=== PATIENT | male | born 1935 | race Caucasian/White ===

== ENCOUNTER → 2016-09-22 | Outpatient (CLI) | payer OTHER, MEDICARE | LOC: BHFA 10:30 | PROVIDERS: ATTEND Internal Medicine Cardiovascular Disease | DX: I71.9 Aortic aneurysm of unspecified site, without rupture (principal); E78.5 Hyperlipidemia, unspecified; I10 Essential (primary) hypertension; I44.7 Left bundle-branch block, unspecified ==

== ENCOUNTER → 2016-10-05 | Outpatient (CLI) | payer OTHER, MEDICARE | LOC: BHFA 10:30 | PROVIDERS: ATTEND Internal Medicine Cardiovascular Disease | DX: I34.0 Nonrheumatic mitral (valve) insufficiency (principal); I44.7 Left bundle-branch block, unspecified ==

== ENCOUNTER → 2016-10-12 | Outpatient (CLI) | payer OTHER, MEDICARE | LOC: BHFA 09:15 | PROVIDERS: ATTEND Internal Medicine Interventional Cardiology | DX: R42 Dizziness and giddiness (principal) ==

== ENCOUNTER → 2016-10-19 | Outpatient (CLI) | payer OTHER, MEDICARE ==
[~2016-10-19] MED LIST: IOPAMIDOL (ISOVUE 370) 100 ML BTL IV ONE
[2016-10-19 14:09] LABS: GLOMERULAR FILTRATION RATE > 60
== END ==
LOC: FIMAGING 13:28
PROVIDERS: ATTEND Physician Assistant Medical
DX: R42 Dizziness and giddiness (principal); I65.21 Occlusion and stenosis of right carotid artery
CPT/HCPCS: 70498; Q9967

== ENCOUNTER → 2016-10-28 | Outpatient (CLI) | payer OTHER, MEDICARE | LOC: BHFA 13:00 | PROVIDERS: ATTEND Internal Medicine Cardiovascular Disease | DX: I44.7 Left bundle-branch block, unspecified (principal); I65.29 Occlusion and stenosis of unspecified carotid artery | CPT/HCPCS: 78452; 93017; A9500 ==

== ENCOUNTER 2016-11-05 05:47 | Inpatient (IN) | payer OTHER, MEDICARE ==
[2016-11-05] MEDS ORDERED: CLINDAMYCIN 600 MG/DEXTROSE 50 ML IV ONE (06:00)
[2016-11-05] MEDS ORDERED: BUPIVACAINE 0.5% 30 ML SDV ONE (06:31)
[2016-11-05] MEDS ORDERED: THROMBIN (BOVINE) 20,000 UNIT SPRAY TP ONE (06:31)
[2016-11-05] MEDS ORDERED: LIDOCAINE 1% 2 ML INJ ONE (06:35)
[2016-11-05] MEDS ORDERED: LR 1,000 ML IV ONE (06:57)
[2016-11-05] MEDS ORDERED: LIDOCAINE 1% 5 ML SDV ID PRN (06:57)
[2016-11-05] MEDS ORDERED: MIDAZOLAM 2 MG/2 ML VIAL ONE (07:00)
[2016-11-05] MEDS ORDERED: fentaNYL 100 MCG/2 ML INJ ONE (07:20)
[2016-11-05] MEDS ORDERED: PROPOFOL/EMULSION 500 MG/50 ML BOTTLE IV ONE (07:20)
[2016-11-05] MEDS ORDERED: REMIFENTANIL HCL 1 MG VIAL ONE (07:20)
[2016-11-05] MEDS ORDERED: HEPARIN 10,000 UNIT/10 ML MDV ONE (07:21)
[2016-11-05] MEDS ORDERED: LIDOCAINE 2% 100 MG/5 ML SYR ONE (07:21)
[2016-11-05] MEDS ORDERED: ONDANSETRON 4 MG/2 ML VIAL ONE (07:21)
[2016-11-05] MEDS ORDERED: PHENYLEPHRINE HCL 100 MCG/ML SYR ONE (07:21)
[2016-11-05] MEDS ORDERED: DEXAMETHASONE 4 MG/ML VIAL ONE (07:21)
[2016-11-05] MEDS ORDERED: HYDROmorphONE/DILAUDID 1 MG/ML SYR IVP PRN (07:23)
[2016-11-05] MEDS ORDERED: ACETAMINOPHEN 325 MG TAB PO PRN (07:23)
[2016-11-05] MEDS ORDERED: HYDROCODONE/APAP 5/325 TAB PO PRN (07:23)
[2016-11-05] MEDS ORDERED: LIDOCAINE HCL 160 MG/4 ML LTA KIT TP ONE (07:24)
[2016-11-05] MEDS ORDERED: epHEDrine SULFATE 10 MG/ML SYR ONE ×2 (07:26)
[2016-11-05] MEDS ORDERED: ENALAPRILAT DIHYDRATE 1.25 MG/ML VIAL IVP PRN (07:27)
[2016-11-05] MEDS ORDERED: ASPIRIN 325 MG TAB PO PRN (07:27)
[2016-11-05] MEDS ORDERED: D5W 1/2 NS 1,000 ML IV SCH (07:30)
--- NOTE | 2016-11-05 07:30 | POSTOPPROG ---
Post Op Note Date of Operation: 11/05/16 Surgeon: Shaheen Torres Rand Cementer: Ty Watt Anesthesiologist: Dr Puente Anesthesia: GET(General Endotracheal) Pre-op Diagnosis: left critical carotid stenosis Post-op Diagnosis: same Indication: stenosis, risk of CVA Procedure: Left CEA Findings: plaque Inf/Abcess present in the surg proc area at time of surgery?: No Depth: Deep Incisional (Fascial) EBL: 50-100 Specimen(s): plaque, cervical node
[2016-11-05] MEDS ORDERED: PROTAMINE SULFATE 50 MG/5 ML VIAL IVP ONE (08:49)
--- NOTE | 2016-11-05 10:07 | GOP ---
[f rep st] OPERATIVE REPORT DATE OF OPERATION: 11/05/2016 SURGEON: Shaheen Torres MD PHYSICIAN SURGEON: Ty Watt PA-C. ANESTHESIOLOGIST: Cruz Puente MD. PREOPERATIVE DIAGNOSIS: 1. Possible transient ischemic attacks. 2. Critical left carotid stenosis. 3. enlarged cervical lymph node POSTOPERATIVE DIAGNOSIS: 1. Possible transient ischemic attacks. 2. Critical left carotid stenosis. 3. benign lymph node PROCEDURE PERFORMED: Left carotid endarterectomy with EEG monitoring./ lymph node biopsy, deep cervical FINDINGS: Patient was found to have a very tight and thick plaque at the origin of the internal carotid artery with a soft necrotic ulcerated plaque. He had no EEG changes during the procedure and no difficulties. DESCRIPTION OF PROCEDURE: Patient taken to the operating room, received satisfactory general endotracheal anesthesia by Dr. Puenet. He was heparinized prior to induction, had continuous EEG monitoring and art line monitoring, prepped and draped in usual sterile fashion. A left neck incision was made along the anterior border of the sternocleidomastoid muscle and carried down through the platysma and subcutaneous tissue, then through the superficial fascia. The facial vein was multiply ligated and divided exposing the carotid arterial tree which was dissected free.A 2 cm cervical lymph node was dissected free and sent to pathology Common carotid, external carotid, internal carotid were all dissected free and controlled with vessel loops. Those were inferior thyroid arteries. Dissection extended well up underneath the mandible to expose the upper portion of the internal carotid until we got to the soft point. This required some mobilization and moving the hypoglossal nerve. After adequate exposure was obtained, additional heparin was given, and after adequate circulation time, the vessels were cross clamped. Arteriotomy was made in the common carotid artery. Incision extended up through the plaque into the internal carotid artery. He had excellent backflow from the internal carotid artery and no EEG changes. Expeditious endarterectomy was then done removing the plaque from the carotid origin. All debris was removed. The vessels were irrigated. All vessels were flushed prior to closure of the arteriotomy. Arteriotomy was closed with running 6-0 Prolene suture, appeared to be quite hemostatic. Heparin was reversed with protamine. The wound was sprayed with some topical thrombin, closed in layers using 3-0 Vicryl for the cervical fascia, 3-0 Vicryl for the platysma and subcutaneous tissue, and a 4-0 Monocryl subcuticular stitch for the skin. The superficial layers were infiltrated with 0.5% Marcaine. Tolerated the procedure quite well. He was taken to the recovery room in good condition moving all extremities. /[id number]/MODL MTDD
[2016-11-05] MEDS ORDERED: ALBUMIN 5% 500 ML IV ONE (10:30)
[2016-11-05] MEDS: CLINDAMYCIN 600 MG/DEXTROSE 50 ML IV SCH (17:30)
[2016-11-05] MEDS ORDERED: LISINOPRIL 40 MG TAB PO SCH (21:00)
[2016-11-05] MEDS ORDERED: ATORVASTATIN CALCIUM 40 MG TAB PO SCH (21:00)
[2016-11-05 22:45] VITALS: TEMP 97.7
[2016-11-05 22:50] VITALS: RESP 14
[2016-11-06] MEDS: CLINDAMYCIN 600 MG/DEXTROSE 50 ML IV SCH (01:10)
[2016-11-06 05:09] LABS: HEMOGLOBIN 12.3 g/dL (13.7-17.5)
[2016-11-06 05:47] LABS: ANION GAP 5 mEq/L (8-16); CARBON DIOXIDE 19 mEq/l (22-31); CHLORIDE 117 mEq/L (97-110); CREATININE 0.6 mg/dL (0.7-1.3); GLOMERULAR FILTRATION RATE > 60; GLUCOSE 126 mg/dL (70-100); POTASSIUM 3.3 mEq/L (3.5-5.2); SODIUM 141 mEq/L (134-144)
[2016-11-06] MEDS ORDERED: CLINDAMYCIN 600 MG/DEXTROSE 50 ML IV SCH (06:00)
--- NOTE | 2016-11-06 10:46 | SOAPPROG ---
SOAP Progress Note Assessment/Plan: Assessment: 81yo male s/p left CEA Doing well, walked 10 laps this AM, minimal pain PE alert bandage dry normal biceps/triceps strength testing to resistance Plan: d/c home 11/06/16 10:44 Objective: Vital Signs Temp Pulse Resp BP Pulse Ox 36.5 C 49 L 14 91/51 L 93 11/06/16 04:00 11/06/16 06:00 11/06/16 06:00 11/06/16 06:00 11/06/16 06:00 Laboratory Results 11/06/16 04:40 11/06/16 04:40 11/05/16 11/06/16 11/07/16 05:59 05:59 05:59 Intake Total 5847 Output Total 8863 Balance 2097 ICD10 Worksheet Patient Problems: Problems Problem Status Onset Carotid stenosis Acute - ICD10 Problem Qualifiers (1) Carotid stenosis Qualifiers: Laterality: L
[2016-11-06 11:35] VITALS: BP 91/52; PULSE 63; O2SAT 93
== END 2016-11-06 12:00 | disposition home or self-care (01) | DRG 39 ==
LOC: F3N 05:47 → F2N 07:55
PROVIDERS: ADMIT Surgery; ATTEND Surgery
DX: I65.22 Occlusion and stenosis of left carotid artery (principal); I10 Essential (primary) hypertension; I71.4 Abdominal aortic aneurysm, without rupture; I25.10 Atherosclerotic heart disease of native coronary artery without angina pectoris; I44.7 Left bundle-branch block, unspecified; R59.0 Localized enlarged lymph nodes
CPT/HCPCS: J1100; J1170; J1265; J1644; J2001; J2250; J2370; J2405; J2704; J2720; J3010; P9041

== ENCOUNTER 2017-04-29 08:34 | Day surgery (SDC) | payer OTHER, MEDICARE ==
[2017-04-29] MEDS ORDERED: DIAZEPAM 5 MG TAB PO ONE (08:42)
[2017-04-29] MEDS ORDERED: NS 1,000 ML IV ONE (08:42)
[2017-04-29] MEDS ORDERED: diphenhydrAMINE 25 MG CAP PO ONE (08:42)
[2017-04-29] MEDS ORDERED: FAMOTIDINE 20 MG TAB PO ONE (08:42)
[2017-04-29] MEDS ORDERED: ASPIRIN EC 325 MG TAB PO ONE (08:42)
--- NOTE | 2017-04-29 08:58 | CPEKG ---
Heart Rate: 60 RR Interval: 1000 P-R Interval: 188 QRSD Interval: 158 QT Interval: 456 QTC Interval: 456 P Chapin: 20 QRS Chapin: -54 T Wave Chapin: 119 EKG Severity - ABNORMAL ECG - EKG Impression: SINUS RHYTHM EKG Impression: LEFT BUNDLE BRANCH BLOCK Electronically Signed By: Terrence Hernandez 29-Apr-2017 13:53:13
[2017-04-29 09:17] LABS: % IMMATURE GRANULYOCYTES 0.2 % (0.0-1.1); ABSOLUTE IMMATURE GRANULOCYTES 0.01 10^3/uL (0.00-0.10); ADD DIFF? NO; ADD MORPH? NO; ADD SCAN? NO; ATYPICAL LYMPHOCYTE FLAG 10 (0-99); FRAGMENT RBC FLAG 0 (0-99); HEMATOCRIT 45.1 % (40.0-51.0); HEMOGLOBIN 15.9 g/dL (13.7-17.5); LEFT SHIFT FLG 0 (0-99); LIPEMIA HEMOLYSIS FLAG 90 (0-99); MEAN CELL HEMOGLOBIN CONCENTR. 35.3 g/dL (32.4-36.7); MEAN CELL VOLUME 96.4 fL (81.5-99.8); MEAN PLATELET VOLUME 9.2 fL (8.7-11.7); PLATELET CLUMPS FLAG 0 (0-99); PLATELET COUNT 193 10^3/uL (150-400); RED BLOOD CELL COUNT 4.68 10^6/uL (4.40-6.38); RED CELL DISTRIBUTION WIDTH 12.2 % (11.5-15.2)
[2017-04-29 09:27] LABS: INR 0.97 (0.83-1.16); PROTIME(PATIENT) 12.8 SEC (12.0-15.0)
[2017-04-29 09:30] LABS: ANION GAP 13 mEq/L (8-16); CALCIUM 9.4 mg/dL (8.5-10.4); CARBON DIOXIDE 23 mEq/l (22-31); CHLORIDE 105 mEq/L (97-110); CHOLESTEROL 122 mg/dL (140-220); CHOLESTEROL/HDL RATIO 2.49 RATIO (1.00-4.97); CREATININE 0.9 mg/dL (0.7-1.3); GLOMERULAR FILTRATION RATE > 60; GLUCOSE 89 mg/dL (70-100); HIGH DENSITY LIPOPROTEIN 49 mg/dL (40-65); LDL/HDL RATIO 1.08 RATIO (1.00-3.64); LOW DENSITY LIPOPROTEIN 53 mg/dL (80-100); NON-HIGH DENSITY LIPOPROTEIN 73 mg/dL (90-129); POTASSIUM 4.4 mEq/L (3.5-5.2); SODIUM 141 mEq/L (134-144); TRIGLYCERIDE 102 mg/dL (40-150); VERY LOW DENSITY LIPOPROTEINS 20 mg/dL (8-25)
[2017-04-29] MEDS ORDERED: LIDOCAINE 1% 300 MG/30 ML SDV ONE (10:33)
[2017-04-29] MEDS ORDERED: fentaNYL 100 MCG/2 ML INJ ONE (10:33)
[2017-04-29] MEDS ORDERED: MIDAZOLAM 2 MG/2 ML VIAL ONE (10:33)
[2017-04-29] MEDS ORDERED: IOPAMIDOL (ISOVUE-370) 150 ML BTL IV ONE ×2 (10:34→12:26)
[2017-04-29] MEDS ORDERED: VERAPAMIL 5 MG/2 ML VIAL ONE (10:34)
[2017-04-29] MEDS ORDERED: HEPARIN 10,000 UNIT/10 ML MDV ONE (10:34)
--- NOTE | 2017-04-29 11:49 | PDHPUP ---
History & Physical Update H&P update statement: This history and physical update is based on an assessment of the patient which was completed after admission or registration (within 24 hours), but prior to the surgery/procedure. H&P update: H&P reviewed & patient examined, no change in patient's condition since H&P completed
--- NOTE | 2017-04-29 11:49 | PDPROPOC ---
Sedation Plan of Care Sedation Plan of Care: vital signs stable, mental status noted, patient educated of risks, benefits, alternatives, patient can tolerate sedation ASA Classification: ASA 2 Planned drugs: fentanyl, midazolam Mallampati Score: Class 2 Mallampati Reference Image: Patient passed 3-3-2 rule?: Yes
[2017-04-29] MEDS ORDERED: ONDANSETRON 4 MG/2 ML VIAL IVP PRN (13:18)
[2017-04-29] MEDS ORDERED: HYDROCODONE/APAP 5/325 TAB PO PRN (13:18)
[2017-04-29] MEDS ORDERED: ATROPINE SULFATE 1 MG/10 ML SYR IVP PRN (13:18)
[2017-04-29] MEDS ORDERED: NITROGLYCERIN 0.4 MG BTL SL PRN (13:18)
[2017-04-29] MEDS ORDERED: OXYCODONE/APAP 5/325 TAB PO PRN (13:18)
--- NOTE | 2017-04-29 17:13 | PDDXCAT ---
Diagnostic Cath Note - . 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 LAD: Mid-LAD stenosis of 90% involving the origins of a small second diagonal branch and the first septal insulator technician with high-grade stenoses of the ostia of both of these vessels. [id number] collateral filling of a portion of the mid- LAD via collaterals from the circumflex to the fourth diagonal branch. Apical portion of the LAD is filled via [id number] collaterals from the RCA. LCX: Mild to moderate irregularities in the mid-circumflex. RCA: Mild to moderate irregularities in the mid-RCA. LVEF: 50% Wall motion: Mild anterior hypokinesis. Complications: None Estimated blood loss: <50ml Closure method: TR Band Assessment: 1) Low normal LVEF. 2) CAD as described above. Plan: The patient has complex disease involving multiple segments of the LAD. He has good collateral filling from 2 sources. Options for revascularization include a complex PCI versus CABG. Prior to considering either of these options, antianginal therapy in the form of a beta sherif and long-acting nitrate will be added to his regimen. Patient Problems: Problems Problem Status Onset Carotid stenosis Acute
[2017-04-29] MEDS ORDERED: METOPROLOL TARTRATE 25 MG TAB PO SCH (21:00)
[2017-04-30] MEDS ORDERED: ISOSORBIDE MONONITRATE 30 MG TAB.SR PO SCH (09:00)
== END 2017-04-29 17:00 | disposition home or self-care (01) ==
LOC: FCATH 08:34
PROVIDERS: ATTEND Internal Medicine Interventional Cardiology
DX: R07.9 Chest pain, unspecified (principal); E78.5 Hyperlipidemia, unspecified; I25.10 Atherosclerotic heart disease of native coronary artery without angina pectoris; I44.7 Left bundle-branch block, unspecified; I71.2 Thoracic aortic aneurysm, without rupture; I10 Essential (primary) hypertension
CPT/HCPCS: 93005; 93458; C1769; C1887; J1644; J2250; J3010; Q9967

== ENCOUNTER → 2018-03-29 | Outpatient (CLI) | payer OTHER, MEDICARE | LOC: FIMAGING 14:18 | PROVIDERS: ATTEND Internal Medicine Cardiovascular Disease | DX: R42 Dizziness and giddiness (principal); R00.1 Bradycardia, unspecified ==

== ENCOUNTER → 2018-09-07 | Outpatient (CLI) | payer OTHER, MEDICARE | LOC: BHFA 11:30 | PROVIDERS: ATTEND Internal Medicine Cardiovascular Disease | DX: I44.7 Left bundle-branch block, unspecified (principal); R00.1 Bradycardia, unspecified ==